=== PATIENT | female | born 1975 | race African-American/Black ===

== ENCOUNTER 2024-07-06 17:21 | Emergency (ER) | payer OTHER ==
[2024-07-06] MEDS ORDERED: Ibuprofen 200 MG TAB ONE (18:16)
[2024-07-06 19:14] LABS: #Basophils 0.04 10x3/uL (0.0-0.2); %Basophils 0.4 % (0.0-1.0); %Eosinophils 1.6 % (0.0-10.0); %Monocytes 5.3 % (0.0-10.0); %Neutrophils 79.1 % (42.0-75.0); Hematocrit 36.7 % (36.0-47.0); Hemoglobin 11.2 g/dL (12.0-16.0); Mean Corpuscular HGB CONC 30.5 g/dL (32.0-36.0); Mean Corpuscular Hemoglobin 23.6 pg (27.0-31.0); Mean Corpuscular Volume 77.3 fL (78.0-98.0); Mean Platelet Volume 9.5 fL (7.4-10.4); Platelet Count 385 10x3/uL (130-400); RBC Distribution Width 17.3 % (11.5-14.5); Red Blood Cell (RBC) Count 4.75 mill/uL (4.20-5.40)
[2024-07-06 19:28] LABS: ALT (SGPT) 10 U/L (8-55); AST (SGOT) 12 U/L (5-34); Albumin 2.6 g/dL (3.5-5.0); Alkaline Phosphatase 87 U/L (40-110); Anion Gap 16 mmol/L (10-20); BUN (Urea Nitrogen) 11 mg/dL (7.0-18.7); Bilirubin, Total 0.4 mg/dL (0.2-1.2); Calc. Creatinine Clearance 0 mL/min (70-130); Calcium 9.2 mg/dL (7.8-10.44); Carbon Dioxide 24 mmol/L (22-29); Chloride 99 mmol/L (98-107); Estimated GFR 61; Globulin 6.1 g/dL (2.4-3.5); Glucose 177 mg/dL (70-105); Lipase 35 U/L (8-78); Potassium 3.8 mmol/L (3.5-5.1); Protein, Total 8.7 g/dL (6.0-8.3); Sodium 135 mmol/L (136-145)
[2024-07-06 19:30] LABS: BHCG - Serum Negative (NEGATIVE); Pregs Control Background? CLEAR/WHITE (CLR/WHITE); Pregs Control Bar Appear? YES (CONTROL BAR)
== END 2024-07-06 20:26 | disposition home or self-care (01) ==
LOC: ERS 17:21
DX: A05.9 Bacterial foodborne intoxication, unspecified (principal); R11.2 Nausea with vomiting, unspecified; I10 Essential (primary) hypertension; E11.9 Type 2 diabetes mellitus without complications
CPT/HCPCS: 36415; 80053; 83690; 84703; 85025; 99284